=== PATIENT | female | born 2000 | race Caucasian/White ===

== ENCOUNTER → 2019-01-30 | Outpatient (REF) | payer BC ==
[2019-01-30 21:26] LABS: HIV 1&2 SCREEN CENTAUR NEGATIVE (NEGATIVE)
[2019-02-01 14:16] LABS: HEPATITIS B SURFACE ANTIGEN NEGATIVE (NEGATIVE); HEPATITIS C VIRUS ABY INDEX 0.2 INDEX (<0.8)
== END ==
LOC: M LABDRWAD 18:03
PROVIDERS: ATTEND Nurse Practitioner Women's Health
DX: Z11.3 Encounter for screening for infections with a predominantly sexual mode of transmission (principal)